=== PATIENT | female | born 1960 | race Two or more races ===

== ENCOUNTER 2018-04-15 17:39 | Emergency (ER) | payer OTHER ==
[~2018-04-15] VITALS: Ht 160 cm; Wt 88.5 kg
[2018-04-15 17:39] VITALS: BP 180/102
--- NOTE | 2018-04-15 19:09 | NUR ---
Called to rm, no answer.
--- NOTE | 2018-04-15 19:20 | NUR ---
2nd Call to nubia hess in restroom.
[2018-04-15 19:50] LABS: APPEARANCE,URINE Clear (CLEAR); BILIRUBIN,URINE SMALL (NEGATIVE); BLOOD, URINE Negative Ery/uL (NEGATIVE); COLOR,URINE Yellow (YELLOW); KETONES,URINE Trace (NEGATIVE); LEUKOCYTE ESTERASE ,URINE Negative (NEGATIVE); NITRITE, URINE Negative (NEGATIVE); PH,URINE 5.5 (5.0-8.0); PROTEIN,URINE 30 mg/dl (NEGATIVE); UGLUCOSE Negative (NEGATIVE); UROBILINOGEN,URINE 0.2 EU/dL (0.2)
[2018-04-15 19:56] LABS: RBC,URINE NONE SEEN /HPF (0-2)
[2018-04-15 19:57] LABS: BACTERIA,URINE Few /HPF (None Seen); SQUAMOUS EPITHELIAL CELL,UR Few /HPF (None Seen); WBC,URINE 0-2 /HPF (0-3)
== END 2018-04-15 20:26 | disposition home or self-care (01) ==
LOC: ER 17:41
DX: Z76.0 Encounter for issue of repeat prescription (principal); R30.0 Dysuria; I10 Essential (primary) hypertension; Z59.0 Homelessness
CPT/HCPCS: 81001; 99283; A4606; Z7610; 81000-TC